=== PATIENT | male | born 1975 | race Caucasian/White ===

== ENCOUNTER 2025-07-02 08:55 | Emergency (ER) | payer OTHER, SELFPAY ==
--- NOTE | 2025-07-02 08:58 | ECG_ITS ---
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 Measurements Intervals [place] Rate: 70 P: 38 AR: 147 QRS: 29 QRSD: 90 T: 68 QT: 362 QTc: 393 Interpretive Statements SINUS RHYTHM MINIMAL ST DEPRESSION [0.025+ mV ST DEPRESSION] No previous ECG available for comparison Electronically Signed On 07-02-2025 13:27:57 CDT by Carson García M.D. [id number]
--- NOTE | 2025-07-02 08:59 | XRR_ITS ---
PROCEDURE INFORMATION: Exam: XR Chest Exam date and time: 07/02/2025 9:19 AM Age: 50 years old Clinical indication: Pain; Chest pressure; Additional info: Chest pain TECHNIQUE: Imaging protocol: Radiologic exam of the chest. Views: 1 view. COMPARISON: No relevant prior studies available. FINDINGS: Lungs: Unremarkable. No consolidation. Pleural spaces: Unremarkable. No pleural effusion. No pneumothorax. Heart/Mediastinum: Unremarkable. No cardiomegaly. Bones/joints: Unremarkable. XR/XR chest 1V portable [id number] IMPRESSION: No acute findings.
[2025-07-02 09:00] VITALS: BP 178/117; PULSE 71; RESP 16; TEMP 36.8; O2SAT 98; BMI 42.5
--- OUTSIDE RECORDS SUMMARY | 2025-07-02 09:03 | XMS_ITS | Clinical Summary ---
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, Abstract from Last 3 Months Family History Relation Name Status Comments Brother 1 Alive Brother 2 Alive Father Alive Mother Alive Sister 1 Alive Sister 2 Alive Social History Tobacco Use Types Packs/Day Years Used Date Smoking Tobacco: Never Smokeless Tobacco: Never Tobacco Cessation:Counseling Given: Not Answered Alcohol Use Standard Drinks/Week Comments No 0 (1 standard drink = 0.6 oz pur e alcohol) Sex and Gender Information Value Date Recorded Sex Assigned at Not on file Legal 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 Gender Identity Not on file Sexual Orientation Not on file Last Filed Vital Signs Vital Sign Reading Time Taken Comments Blood Pressure 147/87 04/26/2024 9:58 AM CDT Pulse 82 04/26/2024 9:58 AM CDT Temperature 36.8 C (98.2 F) 04/26/2024 9:58 AM CDT Respiratory Rate 20 04/26/2024 9:58 AM CDT Oxygen Saturation 97% 04/26/2024 9:58 AM CDT Inhaled Oxygen Concentration - - Weight 107.1 kg (236 lb 3.2 oz) 04/26/2024 9:58 AM CDT Height 165.1 cm (5' 5 ) 04/26/2024 9:58 AM CDT Body Mass Index 39.31 04/26/2024 9:58 AM CDT Plan of Treatment Health Maintenance Due Date Last Done Comments DTAP/TDAP/TD VACCINES (1 - Tdap) 1996 HEPATITIS B VACCINES (1 of 3 - 19+ 3-dose series) 05/01 COLORECTAL SCREENING 2022 Colorectal Cancer Screening 2022 FIT-DNA Q 3 years 2022 FIT/FOBT Q 1 year 2022 Flex Sig/CT Colonography Q 5 years 2022 Preventative Visit- Commercial 11/01/2024 INFLUENZA VACCINE (#1) 2025 Insurance [address] [place] [address] [facility] Care Teams Software Project Manager Relationship Specialty Start Date End Date Jase Marrero MD [address] [place] [id number] PCP - General 12/26/06
--- NOTE | 2025-07-02 09:11 | ED_ITS ---
HPI - Chest Pain 2 General: Chief Complaint: Chest Pain Stated Complaint: dizziness, tight chest Time Seen by Provider: 07/02/25 08:59 Source: patient Mode of arrival: ambulatory Limitations: no limitations History of Present Illness: 50-year-old male states that over the week he has just been feeling he states weird. He states he had some mild headaches he has been having some chest discomfort and feeling like he is having reflux has had some generalized weakness as well he denies any severe pain denies any cough denies any fevers denies any worse improving factors. Denies any shortness of breath. Associated symptoms: Deny abdominal pain, dyspnea, fever(s), nausea or vomiting Related Data Previous Rx's ?Medication ?Instructions ?Recorded amlodipine 5 mg tablet (Norvasc) 5 mg PO DAILY #30 tab s 07/02/25 Allergies Allergy/AdvReac Type Severity Reaction Status Date / Time No Known Allergies Allergy Verified 07/02/25 09:05 Review of Systems 2 Const: Reports: fatigue; Denies: fever(s), chills, body aches or change in appetite Eyes: Denies: blurry vision or eye discomfort ENMT: Denies: throat pain or dental pain Card: Reports: chest pain Resp: Denies: dyspnea GI: Denies: abdominal pain, nausea, vomiting or diarrhea Musc: Denies: neck pain or back pain Skin/Breast: Denies: rash Neuro: Reports: headache(s) Physical Exam 2 Const: COMMON NORMALS: no acute distress, patient oriented x3 and healthy appearing HENMT: COMMON NORMALS: normocephalic and atraumatic HEAD & SCALP: n ormocephalic and atraumatic Eye: COMMON NORMALS: Equal, round and reactive pupils present and EOMs intact bilaterally PUPIL: Yes Equal, round and reactive pupils present Neck/C-Spine: COMMON NORMALS: full ROM and supple Chest: COMMONS NORMALS: normal inspection of the chest and normal palpation of entire chest wall Resp: COMMON NORMALS: normal respiratory effort, No retractions, No use of accessory muscles and clear to auscultation bilaterally AUSCULTATION: clear to auscultation bilaterally Cardio: COMMON NORMALS: regular rate, regular rhythm and No murmurs present (Cardio) RATE: regular rate RHYTHM: regular rhythm GI: COMMON NORMALS: Normal to inspection, nondistended, normoactive bowel sounds present, Soft to palpation, non-tender and no masses PALPATION: Yes Soft to palpation Extremity: COMMON NORMALS: normal to inspection and full ROM Neuro: COMMON NORMALS: patient oriented x3, moves all extremities and no focal motor deficits Psych: COMMON NORMALS: mental status grossly normal, Normal thought process present and cooperative THOUGHT PROCESS: Normal thought process present Skin: COMMON NORMALS: no rashes or lesions noted and no wounds GENERAL SKIN EXAM: no rashes or lesions noted Course 2 Vital Signs: Vital signs: Vital Signs Temperature 98.2 F 07/02/25 09:00 Pulse Rate 65 07/02/25 09:53 Respiratory Rate 16 07/02/25 09:00 Blood Pressure 172/117 07/02/25 09:53 Pulse Oximetry 95 07/02/25 09:53 Oxygen Delivery Me thod Room Air 07/02/25 09:00 MDM - Chest Pain Medical Decision Making Patient presents here with multiple complaints including chest pain generalized weakness he has been well-appearing here blood works normal is no signs of acute coronary syndrome troponin was negative symptoms been going on for a week. No signs of dissection has no signs of subarachnoid hemorrhage he is hypertensive here states his blood pressure has been running high we will start him on Norvasc informed him he needs to check his blood pressure 3 times a day and follow-up with his PCP he understands agrees to plan Medical Records I reviewed the patient's medical records. Lab Data I reviewed the patient's lab results. 07/02/25 09:09 07/02/25 09:09 Radiology Impressions Chest X-Ray 07/02/25 08:59 IMPRESSION: No acute findings. Laboratory Results WBC 7.63 10^3/uL (3.29-11.43) 07/02/25 09:09 RBC 5.46 10^6/uL (3.85-5.65) 07/02/25 09:09 Hgb 16.30 g/dL (11.27-16.99) 07/02/25 09:09 Hct 50.0 % (37-53) 07/02/25 09:09 MCV 91.6 fl (82-101) 07/02/25 09:09 MCH 29.9 pg (27-33) 07/02/25 09:09 MCHC 32.6 g/dL (30-55) 07/02/25 09:09 RDW 13.5 % (12.1-15.1) 07/02/25 09:09 Plt Count 352 10^3/cmm (157-399) 07/02/25 09:09 MPV 9.3 fL (7.4-10.4) 07/02/25 09:09 Neut % (Auto) 63.8 % 07/02/25 09:09 Lymph % (Auto) 23.7 % 07/02/25 09:09 [place] % (Auto) 9.6 % 07/02/25 09:09 Eos % (Auto) 1.3 % 07/02/25 09:09 Baso % (Auto) 0.8 % 07/02/25 09:09 Neut # (Auto) 4.87 10^3/uL (1.8-7.7) 07/02/25 09:09 Lymph # (Auto) 1.8 10^3/uL (0.8-4.8) 07/02/25 09:09 [place] # (Auto) 0.7 10^3/uL (0.2-0.9) 07/02/25 09:09 Eos # (Auto) 0.1 10^3/uL (0.0-0.8) 07/02/25 09:09 Baso # (Auto) 0.1 10^3/uL (0.0-0.1) 07/02/25 09:09 Nucleated RBC % (auto) 0 % 07/02/25 09:09 Nucleated RBCs # 0.0 /100WBC 07/02/25 09:09 Sodium 139 mmol/L (136-145) 07/02/25 09:09 Potassium 4.7 mmol/L (3.5-5.1) 07/02/25 09:09 Chloride 98 mmol/L (98-107) 07/02/25 09:09 Carbon Dioxide 28 mmol/L (22-29) 07/02/25 09:09 Anion Gap 17.7 (5-19) 07/02/25 09:09 BUN 22 mg/dL (6-20) H 07/02/25 09:09 Creatinine 1.1 mg/dL (0.7-1.2) 07/02/25 09:09 GFR Calculation 71.4 mL/min (90-130) L 07/02/25 09:09 Glucose 91 mg/dL (65-115) 07/02/25 09:09 Calculated Osmolality 291 mOsm/kg (285-295) 07/02/25 09:09 Calcium 10.3 mg/dL (8.5-10.5) 07/02/25 09:09 Total Bilirubin 0.5 mg/dL (0.15-1.2) 07/02/25 09:09 AST 18 U/L (0-40) 07/02/25 09:09 ALT 39 U/L (0-41) 07/02/25 09:09 Alkaline Phosphatase 88 U/L (40-130) 07/02/25 09:09 Troponin T Baseline 8 ng/L (0-15) 07/02/25 09:09 Total Protein 7.4 g/dL (6.6-8.7) 07/02/25 09:09 Albumin 4.7 g/dL (3.5-5.2) 07/02/25 09:09 Globulin 2.7 g/dL (1.3-4.6) 07/02/25 09:09 TSH 1.51 uIU/mL (0.27-4.20) 07/02/25 09:09 Influenza A (PCR) Negative (Negative) 07/02/25 09:19 Influenza Type B (PCR) Negative (Negative) 07/02/25 09:19 RSV (PCR) Negative (Negative) 07/02/25 09:19 SARS-CoV-2 (PCR) Negative (Negative) 07/02/25 09:19 All radiology interpretation(s) finalized by discharge EKG Data EKG 1: I personally reviewed and interpreted this EKG as follows: EKG interpretation date: 07/02/25 EKG interpretation time: 08:58 Interpretation: nsr hr [address] elevation qrs 90 qtc 383 Clincial Decision Support The following clinical decision support tools were used to aid in care of the patient HEART Score -> History: Slightly Suspicous, EKG: Normal, Age: 45-64 yrs, Risk Factors: No Risk Factors Known, Troponin: Baseline Trop <16 ng/L. Resulting HEART Score: 1. Discharge Plan Discharge Patient Disposition: Home Clinical Impression: Chest pain, Generalized weakness, Hypertension Condition: Stable Prescriptions: New amlodipine [Norvasc] 5 mg tablet 5 mg PO DAILY Qty: 30 0RF Discharge Orders: Discharge ED (Routine); Ordered 07/02/25 Ordered By: Eduin Barragan Discharge Diet: Advance as tolerated Discharge Activity: Resume usual activity Patient Instructions: Chest Pain (ED), Hypertension (ED) Print Language: Albanian Coding Level of Care Code ED Technology Adoption Manager for Katlin Parra
[2025-07-02 09:15] LABS: Hematocrit 50.0 % (37-53); Hemoglobin 16.30 g/dL (11.27-16.99); Mean Corpuscular HGB Conc 32.6 g/dL (30-55); Mean Corpuscular Hemoglobin 29.9 pg (27-33); Mean Corpuscular Volume 91.6 fl (82-101); Nucleated Red Blood Cells % 0 %; Platelet Count 352 10^3/cmm (157-399); Red Blood Count 5.46 10^6/uL (3.85-5.65); White Blood Count 7.63 10^3/uL (3.29-11.43)
[2025-07-02] MEDS: lidocaine 2% viscous 15 ML, aluminum-mag hydrox-simethicon 30 ML, sucralfate oral liq 1 GM PO (09:20)
[2025-07-02 09:46] LABS: Troponin(5th) Baseline 8 ng/L (0-15)
[2025-07-02 09:53] VITALS: BP 172/117; PULSE 65; O2SAT 95
[2025-07-02 09:56] LABS: Alanine Aminotransferase 39 U/L (0-41); Albumin Level 4.7 g/dL (3.5-5.2); Alkaline Phosphatase 88 U/L (40-130); Aspartate Amino Transferase 18 U/L (0-40); Blood Urea Nitrogen 22 mg/dL (6-20); Calcium 10.3 mg/dL (8.5-10.5); Carbon Dioxide 28 mmol/L (22-29); Chloride 98 mmol/L (98-107); Creatinine Clr Calc Pharmacy 93.5292; Globulin 2.7 g/dL (1.3-4.6); Glucose 91 mg/dL (65-115); Osmolality Calculated 291 mOsm/kg (285-295); Sodium 139 mmol/L (136-145); Thyroid Stimulating Hormone 1.51 uIU/mL (0.27-4.20); Total Protein 7.4 g/dL (6.6-8.7)
[2025-07-02 09:59] LABS: Anion Gap 17.7 (5-19); Potassium 4.7 mmol/L (3.5-5.1)
[2025-07-02 10:08] LABS: Respiratory Syncytial Virus Ce NEGATIVE (Negative); SARS-CoV-2 PCR NEGATIVE (Negative)
[2025-07-02 10:12] VITALS: BP 179/82; PULSE 64; O2SAT 96
[2025-07-02 10:21] VITALS: BP 179/82; PULSE 67; O2SAT 97
== END 2025-07-02 10:22 | disposition home or self-care (01) ==
PROVIDERS: Physician Assistant; Emergency Provider Emergency Medicine
DX: R07.9 Chest pain, unspecified (principal); I10 Essential (primary) hypertension; R53.1 Weakness; Z11.52 Encounter for screening for COVID-19
CPT/HCPCS: 36415; 71045; 80053; 84443; 84484; 85025; 87637; 93005; 99285; J9999